=== PATIENT | male | born 1970 ===

== ENCOUNTER 2023-04-03 13:13 | Outpatient (CLI) | payer BC, SELFPAY | END 2023-04-03 13:14 | disposition home or self-care (01) | LOC: NFLDREF 13:14 | PROVIDERS: PCP Family Medicine; Visit Provider Family Medicine | DX: I10 Essential (primary) hypertension (principal); E78.5 Hyperlipidemia, unspecified; E66.9 Obesity, unspecified | CPT/HCPCS: 80048 ==